=== PATIENT | male | born 1955 | race Caucasian/White ===

== ENCOUNTER 2018-11-08 12:25 | Emergency (ER) | payer OTHER ==
[~2018-11-08] VITALS: Ht 175.3 cm; Wt 131.5 kg
[2018-11-08] MEDS ORDERED: ATEN50 PO (13:00)
[2018-11-08] MEDS ORDERED: ROSU10TA PO (13:00)
[2018-11-08] MEDS ORDERED: Diovan Hct 80-1 EACH PO (13:00)
[2018-11-08] MEDS ORDERED: ASPI81CH PO (13:01)
== END 2018-11-08 13:20 | disposition home or self-care (01) ==
LOC: ER 12:25
DX: S90.32XA Contusion of left foot, initial encounter (principal); W22.8XXA Striking against or struck by other objects, initial encounter; Z79.899 Other long term (current) drug therapy; Z79.82 Long term (current) use of aspirin; I10 Essential (primary) hypertension; E78.5 Hyperlipidemia, unspecified; Z87.891 Personal history of nicotine dependence
CPT/HCPCS: 73630; 99283-25